=== PATIENT | female | born 1945 | race African-American/Black ===

== ENCOUNTER 2017-07-04 09:48 | Emergency (ER) | payer OTHER ==
[~2017-07-04] VITALS: Ht 172.7 cm; Wt 95.5 kg
[~2017-07-04 09:48] MED LIST: CHOL100030 PO; HYDR25TA PO; INTE22DI SQ; LISI10TA PO; OMEG300C3 PO; POTA99TA25 PO; SIMV5TAB6 PO
[2017-07-04] MEDS ORDERED: PredniSONE 20 MG TABLET PO ONE (11:45)
[2017-07-04] MEDS ORDERED: MUPIROCIN CALCIUM 2% 22 GM OINTMENT TP ONE (11:45)
[2017-07-04 12:17] VITALS: BP 141/88
== END 2017-07-04 12:18 | disposition home or self-care (01) ==
LOC: EMS 09:52
DX: S61.431A Puncture wound without foreign body of right hand, initial encounter (principal); E78.00 Pure hypercholesterolemia, unspecified; I10 Essential (primary) hypertension; F17.210 Nicotine dependence, cigarettes, uncomplicated; Z88.6 Allergy status to analgesic agent; Z88.2 Allergy status to sulfonamides; X58.XXXA Exposure to other specified factors, initial encounter; Y93.89 Activity, other specified; Y92.89 Other specified places as the place of occurrence of the external cause; Y99.8 Other external cause status
CPT/HCPCS: 73130; 99284; J7512